=== PATIENT | female | born 1990 | race Caucasian/White ===

== ENCOUNTER 2017-03-15 20:08 | Emergency (ER) | payer OTHER ==
[~2017-03-15] VITALS: Ht 170.2 cm; Wt 110.0 kg
[2017-03-15 20:30] VITALS: BP 130/82; PULSE 100; RESP 18; TEMP 98.8; O2SAT 97
[2017-03-15 21:36] VITALS: BP 117/67; PULSE 89; RESP 21; TEMP 98.5; O2SAT 99
[2017-03-15] MEDS ORDERED: CYCL10TA PO (21:57)
[2017-03-15] MEDS ORDERED: TRAM50 PO (21:57)
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
[2017-03-15] MEDS ORDERED: traMADol HCL 50 MG TAB PO ONE (22:00)
[2017-03-15] MEDS ORDERED: CYCLOBENZAPRINE HCL 10 MG TAB PO ONE (22:00)
== END 2017-03-15 22:25 | disposition home or self-care (01) ==
LOC: NEPD 20:08
DX: S80.11XA Contusion of right lower leg, initial encounter (principal); V89.2XXA Person injured in unspecified motor-vehicle accident, traffic, initial encounter; Y92.410 Unspecified street and highway as the place of occurrence of the external cause
CPT/HCPCS: 99284